=== PATIENT | female | born 1995 | race African-American/Black ===

== ENCOUNTER 2018-02-23 18:54 | Inpatient (IN) ==
[2018-02-23] MEDS ORDERED: BUTORPHANOL 2 MG/ML VIAL IV PRN (19:01)
[2018-02-23] MEDS ORDERED: ONDANSETRON 4 MG/2 ML VIAL IV PRN (19:01)
[2018-02-23] MEDS ORDERED: hydrOXYzine HCL 25 MG/1 ML VIAL IM PRN (19:03)
[2018-02-23] MEDS ORDERED: diphenhydrAMINE 50 MG/1 ML VIAL IV PRN ×2 (19:03)
[2018-02-23] MEDS ORDERED: FAMOTIDINE 20 MG/2 ML VIAL IV ONE (19:03)
[2018-02-23] MEDS ORDERED: CITRIC ACID/SODIUM CITRATE 30 ML UDCUP PO ONE (19:03)
[2018-02-23] MEDS ORDERED: NALOXONE 0.4 MG/ML VIAL IV PRN (19:03)
[2018-02-23] MEDS ORDERED: ePHEDrine 50 MG/ML AMP IV PRN (19:03)
[2018-02-23] MEDS ORDERED: LACTATED RINGERS 1,000 ML IV ONE (19:03)
[2018-02-23] MEDS ORDERED: PROMETHAZINE 25 MG/1 ML VIAL IM ONE (19:03)
[2018-02-23 19:29] LABS: Basophils # 0.1 10*3/uL (0.0-0.2); Basophils % 0.4 % (0.0-0.8); Eosinophils # 0.3 10*3/uL (0.0-0.87); Eosinophils % 2.7 % (0.00-10.9); Hematocrit 30.1 VOL% (35.7-47.0); Hemoglobin 8.8 GM/DL (12.0-16.0); Immature Granulocytes % 1.1 %; Immature Granulocytes Absolute 0.14 #; Lymphocytes # 1.8 10*3/uL (1.4-4.0); Lymphocytes % 14.4 % (21.3-54.2); Mean Corpuscular HGB Conc 29.2 GM/DL (32-36); Mean Corpuscular Hemoglobin 22 PG (27-34); Mean Corpuscular Volume 74.1 FL (87-102); Mean Platelet Volume 9.2 FL (9.6-12.0); Monocytes # 1.1 10*3/uL (0.11-0.8); Monocytes % 8.8 % (1.7-12.7); Neutrophils # 9.1 10*3/uL (1.4-7.4); Neutrophils % 72.6 % (38.7-73.9); Platelet Count 391 T/CUMM (130-400); Red Blood Count 4.06 MC/CUMM (3.8-5.5); Red Cell Distribution Width 19.8 % (9.3-17.3); White Blood Count 12.6 T/CUMM (4-12)
[2018-02-23] MEDS ORDERED: fentaNYL 2 MCG/ROPIV 0.2% EPID 100 ML EPIDURAL SCH (19:30)
[2018-02-23] MEDS ORDERED: LACTATED RINGERS 1,000 ML IV SCH (19:30)
[2018-02-23] MEDS ORDERED: OXYTOCIN/LR 20 UNIT/1,000 ML BAG IV ONE (21:23)
[2018-02-23] MEDS ORDERED: miSOPROStol 200 MCG TABLET ONE (21:30)
[2018-02-23] MEDS ORDERED: METHYLERGONOVINE 0.2 MG/1 ML AMP ONE (21:30)
[2018-02-23] MEDS ORDERED: HYDROCORTISONE 2.5% RECTAL CREAM 30 GM TUBE TOP PRN (23:24)
[2018-02-23] MEDS ORDERED: LANOLIN 50% CREAM 0.3 OZ TUBE TOP PRN (23:24)
[2018-02-23] MEDS ORDERED: ACETAMINOPHEN 325 MG TABLET PO PRN (23:24)
[2018-02-23] MEDS ORDERED: WITCH HAZEL PADS 100/JAR TOP PRN (23:24)
[2018-02-23] MEDS ORDERED: oxyCODONE/ACETAMINOPHEN 5-325 MG TABLET PO PRN ×2 (23:24)
[2018-02-23] MEDS ORDERED: BENZOCAINE 20%/MENTHOL 0.5% SPRAY 56 GM CAN TOP PRN (23:24)
[2018-02-23] MEDS ORDERED: BISACODYL 10 MG SUPP RECTAL PRN (23:24)
[2018-02-23] MEDS ORDERED: DIPH/TET/ACEL PERT BOOSTER VACCINE 0.5 ML VIAL IM ONE (23:30)
[2018-02-23 23:31] LABS: Apearance,Urine CLEAR (Clear); Bilirubin,Urine Negative (Negative); Blood, Urine Negative (Negative); Glucose,Urine (UA) Negative (Negative); Ketones,Urine 5 mg/dL (Negative); Mucus,Urine Occasional /LPF (Occasional); Nitrite,Urine Negative (Negative); Protein,Urine Negative; RBC,Urine 1 /HPF (0-4); Renal Epithelial Cells,Urine Occasional /HPF (<1); Squamous Epithelial Cell,Urine Occasional /HPF (0-10); Transitional Epi Cells,Urine Occasional /HPF (<1); Urine Color Straw (Yellow); Urine Specific Gravity 1.005 (1.001-1.035); Urine Urobilinogen < 2.0 EU/DL (0.2-1.0); WBC,Urine 1 /HPF (0-6)
[2018-02-24] MEDS ORDERED: RHO(D) IMMUNE GLOBULIN 300 MCG SYRINGE IM ONE
[2018-02-24] MEDS ORDERED: MEASLES/MUMPS/RUBELLA VACCINE 0.5 ML VIAL SUBCUT ONE
[2018-02-24] MEDS: IBUPROFEN 800 MG TABLET PO PRN ×3 (05:23→20:24)
[2018-02-24 07:07] LABS: Basophils # 0.1 10*3/uL (0.0-0.2); Basophils % 0.3 % (0.0-0.8); Eosinophils # 0.3 10*3/uL (0.0-0.87); Eosinophils % 1.5 % (0.00-10.9); Hematocrit 27.8 VOL% (35.7-47.0); Hemoglobin 8.3 GM/DL (12.0-16.0); Immature Granulocytes % 0.8 %; Immature Granulocytes Absolute 0.13 #; Lymphocytes # 1.9 10*3/uL (1.4-4.0); Lymphocytes % 11.7 % (21.3-54.2); Mean Corpuscular HGB Conc 29.9 GM/DL (32-36); Mean Corpuscular Hemoglobin 22 PG (27-34); Mean Corpuscular Volume 72.8 FL (87-102); Monocytes # 1.6 10*3/uL (0.11-0.8); Monocytes % 9.7 % (1.7-12.7); Neutrophils # 12.6 10*3/uL (1.4-7.4); Platelet Count 325 T/CUMM (130-400); Red Blood Count 3.82 MC/CUMM (3.8-5.5); Red Cell Distribution Width 19.9 % (9.3-17.3); White Blood Count 16.6 T/CUMM (4-12)
[2018-02-24] MEDS: DOCUSATE SODIUM 100 MG CAPSULE PO SCH ×2 (09:52→20:24)
[2018-02-25] MEDS: IBUPROFEN 800 MG TABLET PO PRN (03:43)
[2018-02-25] MEDS: DOCUSATE SODIUM 100 MG CAPSULE PO SCH (08:06)
[2018-02-25 08:43] VITALS: BP 93/62
== END 2018-02-25 12:55 | disposition home or self-care (01) | DRG 560 ==
LOC: N.LDOUT 18:54 → N.LD 18:56 → N.OB 02-24 01:11
PROVIDERS: ADMIT Obstetrics & Gynecology; ATTEND Obstetrics & Gynecology